=== PATIENT | female | born 1990 | race Caucasian/White ===

== ENCOUNTER → 2020-07-09 14:46 | Outpatient (CLI) | payer OTHER, SELFPAY ==
[2020-07-09 15:45] LABS: Add Manual Diff / Slide Review NO; Basophils Absolute Auto 100 /uL (0-100); Basophils Percent Auto 0.7 % (0-2); Eosinophils Absolute Auto 100 /uL (0-450); Eosinophils Percent Auto 0.8 % (2-4); Hematocrit 36.1 % (36-46); Hemoglobin 12.4 g/dL (12.0-16.0); Lymphocytes Absolute Auto 2100 /uL (1100-4500); Lymphocytes Percent Auto 28.5 % (25-40); Mean Corpuscular HGB Conc 34.3 % (30-36); Mean Corpuscular Hemoglobin 31.2 PG (26-34); Mean Corpuscular Volume 90.8 fL (80-100); Monocytes Absolute Auto 700 /uL (0-900); Monocytes Percent Auto 8.8 % (3-14); Neutrophils Absolute Auto 4600 /uL (1500-7000); Neutrophils Percent Auto 61.2 % (50-75); Platelet Count 238 X10^3/uL (150-400); Red Blood Cell Count 3.98 X10^6/uL (4.0-5.2); Red Cell Distribution Width 12.3 % (11.6-14.8); White Blood Cell Count 7.5 X10^3/uL (4.5-11.0)
[2020-07-09 16:16] LABS: Appearance Urine UA CLEAR; Bilirubin Urine UA NEGATIVE (NEGATIVE); Color Urine UA YELLOW; Glucose Urine UA NEGATIVE (Negative); Ketones Urine UA NEGATIVE (NEGATIVE); Leukocyte Esterase Urine UA NEGATIVE (NEGATIVE); Nitrite Urine UA NEGATIVE (Negative); Occult Blood Urine UA NEGATIVE (Negative); Protein Urine UA NEGATIVE (Negative); Specific Gravity Urine UA <=1.005 (1.000-1.035); Urobilinogen Urine UA 0.2 E.U./dL (0.2)
[2020-07-09 16:21] LABS: pH Urine UA 6.5 (4.5-8.0)
[2020-07-10 06:09] LABS: RPR Screen Non Reactive (Non Reactive)
[2020-07-10 10:36] LABS: Varicella IgG Antibody 1571 index (Immune >165)
[2020-07-10 18:17] LABS: Hepatitis B Surface Antigen NEGATIVE s/c (NEGATIVE)
[2020-07-10 18:34] LABS: HIV 1 & 2 Ab/Ag 4th Gen Combo NEGATIVE (NEGATIVE); Hep C Virus Ab w/Reflex Quant NEGATIVE s/c (NEGATIVE)
== END ==
PROVIDERS: Referring Provider Family Medicine; Visit Provider Family Medicine
DX: Z34.01 Encounter for supervision of normal first pregnancy, first trimester (principal)
CPT/HCPCS: 36415; 80055; 81003; 86787; 86803; 86850; 86900; 86901; 87086; 87389

== ENCOUNTER → 2020-09-04 07:54 | Outpatient (CLI) | payer OTHER, SELFPAY ==
[2020-09-06 18:47] LABS: AFP, Serum 40.3 ng/mL (.); Inhibin A, Dimeric 200.43 pg/mL (.); Inhibin A, MoM 1.16 (.); Maternal Ethnicity Caucasian (.); Maternal Weight 145 lbs (.); Number of Fetuses No (.); OSBR Risk 1 IN 10000 (.); Results Report (.); Test Results *Screen Negative* (.); hCG, MoM 3.27 (.); hCG, Serum 88233 mIU/mL (.)
== END ==
PROVIDERS: PCP Family Medicine; Referring Provider Family Medicine; Visit Provider Family Medicine
DX: Z34.90 Encounter for supervision of normal pregnancy, unspecified, unspecified trimester (principal); Z3A.16 16 weeks gestation of pregnancy
CPT/HCPCS: 36415; 82105; 82677; 84702; 86336

== ENCOUNTER → 2020-09-10 13:52 | Outpatient (CLI) | payer OTHER, SELFPAY | PROVIDERS: PCP Family Medicine; Referring Provider Family Medicine; Visit Provider Family Medicine | DX: Z34.92 Encounter for supervision of normal pregnancy, unspecified, second trimester (principal); Z3A.20 20 weeks gestation of pregnancy; Z53.9 Procedure and treatment not carried out, unspecified reason ==

== ENCOUNTER → 2020-09-24 09:08 | Outpatient (CLI) | payer OTHER, SELFPAY ==
--- NOTE | 2020-09-24 09:10 | DI.US.S_ITS ---
PROCEDURE: US OB >= 14 WEEKS FETUS INDICATIONS: ANATOMY SCAN OUTSIDE/PRIOR DATING DATA: Last menstrual period (LMP): 04/26/2020. LMP-based estimated date of delivery (ROSALINDA): 01/31/2021 . First dating scan (date and location): 09/24/2020 . Estimated date of delivery (ROSALINDA) from first dating scan: 02/04/2021 . TECHNIQUE: Real-time scanning was performed of the fetus, with image documentation and biometric measurements. Endovaginal scanning: No COMPARISON: None. FINDINGS: General: A single living intrauterine gestation is present. Presentation: Breech. Placenta: Placental position is right fundal , without previa. Amniotic fluid index: 13.5 cm, normal range is 5-24 cm. heart rate: 168 beats per minute. Maternal cervical canal: 3.6 cm long. Normal lower limit is 2.5 cm. biometrics: Biparietal diameter: 21 weeks Head circumference: 20 weeks 6 days Abdominal circumference: 21 weeks 4 days Femur length: 20 weeks 2 days Estimated gestational age from initial scan: not applicable. Composite gestational age from present scan: 21 weeks Estimated weight and percentile: 389 g; 17 percentile Measurement variability for biometric dating: +/- 7 days from 14 weeks to 15 weeks 6 days gestation, +/- 10 days from 16 weeks to 21 weeks 6 days gestation, +/- 2 weeks from 22 weeks to 27 weeks 6 days gestation, +/- 3 weeks for 28 weeks gestation or later. weight reference: 4500 g or EFW >90/95% is considered macrosomia or large for gestational age. EFW <10% is small for gestational age. EFW 5% or less is considered intra-uterine growth restriction. Anatomic survey: Neuro: Ventricles are non-dilated at less than 10 mm. Cisterna magna is normal at 3-11 mm. Cerebellum is normal in size and morphology. Nuchal skin fold: Normal at less than 6 mm between 14-21 weeks gestational age. Face: Nose and lips, facial profile are normal. Spine: No evidence for spina bifida. Heart: 4-chambered heart is present, with normal ventricular outflow tracts. Diaphragm: Diaphragm is intact. Stomach: Left-sided stomach is present. Kidneys: No hydronephrosis. Normal is less than 5 mm in 2nd trimester, less than 7 mm in 3rd trimester. Cord: 3-vessel cord has orthotopic insertion. Bladder: Normal in size. Extremities: All 4 extremities identified. IMPRESSION: 1. Single living IUP with composite gestational age of 21 weeks corresponding to ultrasound ROSALINDA of 02/04/2021. 2. Normal anatomic survey. Dictated by: Jose L Linder [facility] Interpreted: Jerardo Restrepo MD on 09/24/2020 at 10:48 Approved by: Jerardo Restrepo M.D. on 09/24/2020 at 11:12
== END ==
PROVIDERS: PCP Family Medicine; Referring Provider Family Medicine; Visit Provider Family Medicine
DX: Z36.89 Encounter for other specified antenatal screening (principal); Z3A.21 21 weeks gestation of pregnancy
CPT/HCPCS: 76811

== ENCOUNTER → 2020-11-19 16:06 | Outpatient (CLI) | payer OTHER, SELFPAY ==
[2020-11-19 17:50] LABS: Add Manual Diff / Slide Review NO; Basophils Absolute Auto 100 /uL (0-100); Basophils Percent Auto 0.6 % (0-2); Eosinophils Absolute Auto 100 /uL (0-450); Eosinophils Percent Auto 1.1 % (2-4); Hematocrit 34.3 % (36-46); Hemoglobin 11.8 g/dL (12.0-16.0); Lymphocytes Absolute Auto 2500 /uL (1100-4500); Lymphocytes Percent Auto 25.9 % (25-40); Mean Corpuscular HGB Conc 34.5 % (30-36); Mean Corpuscular Hemoglobin 31.9 PG (26-34); Mean Corpuscular Volume 92.6 fL (80-100); Monocytes Absolute Auto 800 /uL (0-900); Neutrophils Absolute Auto 6200 /uL (1500-7000); Neutrophils Percent Auto 64.4 % (50-75); Platelet Count 227 X10^3/uL (150-400); Red Cell Distribution Width 12.8 % (11.6-14.8); White Blood Cell Count 9.6 X10^3/uL (4.5-11.0)
[2020-11-19 18:03] LABS: GTT (PREG) 1 Hour PP 50gm Dose 114 mg/dL (76-139)
== END ==
PROVIDERS: PCP Family Medicine; Referring Provider Family Medicine; Visit Provider Family Medicine
DX: Z34.90 Encounter for supervision of normal pregnancy, unspecified, unspecified trimester (principal)
CPT/HCPCS: 36415; 82950; 85025

== ENCOUNTER → 2021-01-09 16:11 | Outpatient (CLI) | payer OTHER, SELFPAY ==
[2021-01-10 13:03] LABS: Strep Grp B PCR NEG for Grp B Strep
== END ==
PROVIDERS: PCP Family Medicine; Visit Provider Family Medicine
DX: Z3A.35 35 weeks gestation of pregnancy (principal); Z34.90 Encounter for supervision of normal pregnancy, unspecified, unspecified trimester
CPT/HCPCS: 87653

== ENCOUNTER → 2021-01-23 11:12 | Outpatient (CLI) | payer OTHER, SELFPAY ==
[2021-01-23 11:59] LABS: Add Manual Diff / Slide Review NO; Basophils Absolute Auto 0 /uL (0-100); Basophils Percent Auto 0.4 % (0-2); Eosinophils Absolute Auto 100 /uL (0-450); Eosinophils Percent Auto 0.9 % (2-4); Hematocrit 35.8 % (36-46); Hemoglobin 12.4 g/dL (12.0-16.0); Lymphocytes Absolute Auto 2300 /uL (1100-4500); Lymphocytes Percent Auto 21.9 % (25-40); Mean Corpuscular HGB Conc 34.7 % (30-36); Mean Corpuscular Hemoglobin 31.9 PG (26-34); Mean Corpuscular Volume 92.1 fL (80-100); Monocytes Absolute Auto 700 /uL (0-900); Monocytes Percent Auto 7.1 % (3-14); Neutrophils Absolute Auto 7200 /uL (1500-7000); Neutrophils Percent Auto 69.7 % (50-75); Platelet Count 164 X10^3/uL (150-400); Red Blood Cell Count 3.88 X10^6/uL (4.0-5.2); Red Cell Distribution Width 12.9 % (11.6-14.8); White Blood Cell Count 10.4 X10^3/uL (4.5-11.0)
[2021-01-23 12:40] LABS: Alanine Aminotransferase 9 IU/L (<35); Albumin 3.1 g/dL (3.5-5.0); Albumin Globulin Ratio 1.2 (1.0-2.8); Alkaline Phosphatase 128 U/L (38-126); Aspartate Aminotransferase 22 IU/L (14-36); Blood Urea Nitrogen 7 mg/dL (7-17); Calcium 9.3 mg/dL (8.4-10.2); Carbon Dioxide 25 mmol/L (22-32); Chloride 103 mmol/L (98-107); Estimated Glomerular Filt Rate > 60.0 mL/min (>60); Globulin 2.6 g/dL (1.7-4.1); Glucose 115 mg/dL (70-100); HEMOLYSIS < 15 (0-50); Potassium 4.1 mmol/L (3.4-5.1); Sodium 133 mmol/L (137-145); Total Protein 5.7 g/dL (6.3-8.2)
[2021-01-23 12:43] LABS: Bilirubin Total < 0.1 mg/dL (0.2-1.3)
[2021-01-23 13:14] LABS: Creatinine Urine Random 15.1 mg/dL; Protein (Total) Urine Random 13 mg/dL (0-12); Protein Creatinine Ratio Urine 0.86 GRAM/24H
== END ==
PROVIDERS: PCP Family Medicine; Referring Provider Family Medicine; Visit Provider Family Medicine
DX: O16.3 Unspecified maternal hypertension, third trimester (principal); Z3A.37 37 weeks gestation of pregnancy
CPT/HCPCS: 36415; 80053; 82570; 84156; 85025

== ENCOUNTER 2021-01-23 11:51 | Outpatient (CLI) | payer OTHER, SELFPAY ==
--- NOTE | 2021-01-23 12:47 | P.TNLD_ITS ---
Visit Information Visit Information Date of evaluation: 01/23/21 Primary OB Provider: Melissa Sykes Reason for Evaluation: Yes non-stress test non-stress test reason: hypertension/pre-eclampsia Comments/Additional reasons for admission: 30yo at 37w3d here for elevated BP in clinic. No headache, vision changes, right upper quadrant abdominal pain, lower extremity edema. Patient denies any vaginal bleeding, loss of fluid, regular contractions. She is feeling the baby move regularly. REPLACED BY [facility] Medical History (Updated 01/23/21 @ 12:49 by Melissa Sykes MD) HSV-1 infection (~2005) Kidney stone (~2001) Surgical History (Updated 07/13/20 @ 09:17 by Molly Leal RN) [place] teeth extracted (~2008) Family History (Updated 07/13/20 @ 09:30 by Molly Leal RN) Mother Hypertension Father Arthritis Reflux esophagitis Grandmother Heart valve replaced H/O: hysterectomy Grandfather Alzheimer disease Grandmother Dementia Grandfather Cancer Pulmonary embolism Kidney stone Brother Obesity Social History marital status: household members: spouse lives independently: Yes caregiver/support person: No housing: house pets and animals: Yes (1 cat, 1 dog, aware of precautions.) education level: college occupational status: employed current occupational exposures/hazards: No special mera needs: No leisure activities: exercise seatbelt use: always helmet use: Yes do you feel safe at home: Yes Smoking Status: Never smoker second hand exposure: No alcohol intake: former substance use type: does not use during the past year weight has: increased > 10 lbs well-balanced diet: daily or most days daily servings fruits/ve or more times/day caffeine: No Type(s) of exercise: walking, bicycling and yoga frequency: 3-4 times per week duration: 30-45 minutes/day Evaluation Evaluation Baseline heart rate: 150 Variability: Moderate (11-25) monitor accelerations: Present Monitor Decelerations: Absent Category of Tracing: Reactive Diagnosis, Plan/Disposition Final Diagnosis (1) 37 weeks gestation of : Status: Acute (2) Elevated blood pressure affecting in third trimester, antepartum: Status: Acute Plan/Disposition Plan: 30yo at 37w3d here for elevated BP in clinic. Repeat BPs here normal range. Lab work without evidence HELLP, however protein/creatinine is elevated. Discussed concern for pre-eclampsia with this. Recommend IOL. After at length discussion regarding risks, pt would like to wait on IOL at this time. Plan to have her return in 2 days for NST and BPP. Pt to check BPs at home at least BID, will contact if > 140/90, or any signs/symptoms. Plan for IOL on 01/31 into 02/01. OB Disposition: home
== END 2021-01-23 13:35 | disposition home or self-care (01) ==
LOC: LABOR 12:41 → OB 01-24 10:38
PROVIDERS: PCP Family Medicine; Referring Provider Family Medicine; Visit Provider Family Medicine
DX: O16.3 Unspecified maternal hypertension, third trimester (principal); Z3A.37 37 weeks gestation of pregnancy
CPT/HCPCS: 36415; 59025; 80053; 82570; 84156; 85025; G0378; G0379

== ENCOUNTER 2021-01-25 16:04 | Outpatient (CLI) | payer OTHER, SELFPAY ==
--- NOTE | 2021-01-25 16:11 | P.TNLD_ITS ---
Visit Information Visit Information Date of evaluation: 01/25/21 Primary OB Provider: Melissa Sykes Reason for Evaluation: Yes non-stress test non-stress test reason: hypertension/pre-eclampsia Comments/Additional reasons for admission: 30yo at 37w5d here for IOL for pre-eclampsia without severe features. [facility] Medical History (Updated 01/25/21 @ 17:19 by Melissa Sykes MD) HSV-1 infection (~2005) Kidney stone (~2001) Pre-eclampsia Surgical History (Updated 07/13/20 @ 09:17 by Molly Leal RN) [place] teeth extracted (~2008) Family History (Updated 07/13/20 @ 09:30 by Molly Leal RN) Mother Hypertension Father Arthritis Reflux esophagitis Grandmother Heart valve replaced H/O: hysterectomy Grandfather Alzheimer disease Grandmother Dementia Grandfather Cancer Pulmonary embolism Kidney stone Brother Obesity Social History marital status: household members: spouse lives independently: Yes caregiver/support person: No housing: house pets and animals: Yes (1 cat, 1 dog, aware of precautions.) education level: college occupational status: employed current occupational exposures/hazards: No special mera needs: No leisure activities: exercise seatbelt use: always helmet use: Yes do you feel safe at home: Yes Smoking Status: Never smoker second hand exposure: No alcohol intake: former substance use type: does not use during the past year weight has: increased > 10 lbs well-balanced diet: daily or most days daily servings fruits/ve or more times/day caffeine: No Type(s) of exercise: walking, bicycling and yoga frequency: 3-4 times per week duration: 30-45 minutes/day Evaluation Evaluation Baseline heart rate: 150 Variability: Moderate (11-25) monitor accelerations: Present Monitor Decelerations: Absent Category of Tracing: Reactive Diagnosis, Plan/Disposition Final Diagnosis (1) 37 weeks gestation of : Status: Acute (2) Pre-eclampsia: Status: Acute Plan/Disposition Plan: 30yo at 37w5d here for NST and BPP for pre-eclampsia. NST reactive and BPP 8/8. Pts BPs borderline throughout her time in L&D, with more elevation after surprise finding out she was having a boy not a girl based on u/s. Pt aware of risks of continuing with instead of IOL, and elected to not be induced. Will have f/u on 01/29 for NST and repeat lab work. Plan for IOL on 02/01 still. Aware to check BPs at home TID, and signs/symptoms of pre- eclampsia. OB Disposition: home
--- NOTE | 2021-01-25 16:15 | DI.US.S_ITS ---
PROCEDURE: US OB BIOPHYSICAL PROFILE INDICATIONS: Gestational HTN OUTSIDE/PRIOR DATING DATA: Last menstrual period (LMP): 04/26/2020 . LMP-based estimated date of delivery (ROSALINDA): 01/31/2021 . First dating scan (date and location): 09/24/2020 . Estimated date of delivery (ROSALINDA) from first dating scan: 02/04/2021 . TECHNIQUE: Real-time scanning was performed of the fetus for biophysical profile, with image documentation. Color and pulse Doppler interrogation was also performed of the umbilical artery near its insertion into the placenta. COMPARISON: None. FINDINGS: General: A single living intrauterine gestation is present. Presentation: Unable to identified Placenta: Placental position is fundal , without previa. Amniotic fluid index: 22 cm, normal range is 5-24 cm. heart rate: 153 beats per minute. Estimated gestational age from initial scan: 38 weeks 4 days . Biophysical profile: Tone: 2 points. Movement: 2 points. Respiration: 2 points. Largest pocket of fluid: 2 points. IMPRESSION: 1. Single live intrauterine with an estimated gestational age of 38 weeks 4 days. 2. Biophysical profile = 8/8 3. WANDA = 22. Upper limits of normal. Dictated by: Moe Cadet M.D. on 01/25/2021 at 17:48 Approved by: Moe Cadet M.D. on 01/25/2021 at 17:52
== END 2021-01-25 17:45 | disposition home or self-care (01) ==
LOC: OB 01-28 11:24
PROVIDERS: PCP Family Medicine; Referring Provider Family Medicine; Visit Provider Family Medicine
DX: O14.03 Mild to moderate pre-eclampsia, third trimester (principal); Z3A.37 37 weeks gestation of pregnancy
CPT/HCPCS: 59025; 59050; 76819; G0378; G0379

== ENCOUNTER 2021-01-29 10:56 | Outpatient (CLI) | payer OTHER, SELFPAY ==
[2021-01-29 11:42] LABS: Add Manual Diff / Slide Review NO; Basophils Absolute Auto 100 /uL (0-100); Basophils Percent Auto 0.5 % (0-2); Eosinophils Absolute Auto 100 /uL (0-450); Eosinophils Percent Auto 0.9 % (2-4); Hematocrit 36.9 % (36-46); Hemoglobin 12.5 g/dL (12.0-16.0); Lymphocytes Absolute Auto 2300 /uL (1100-4500); Lymphocytes Percent Auto 19.3 % (25-40); Mean Corpuscular HGB Conc 33.8 % (30-36); Mean Corpuscular Hemoglobin 31.2 PG (26-34); Mean Corpuscular Volume 92.3 fL (80-100); Monocytes Absolute Auto 1100 /uL (0-900); Monocytes Percent Auto 9.4 % (3-14); Neutrophils Absolute Auto 8400 /uL (1500-7000); Neutrophils Percent Auto 69.9 % (50-75); Platelet Count 186 X10^3/uL (150-400); Red Cell Distribution Width 12.8 % (11.6-14.8)
--- NOTE | 2021-01-29 11:51 | PM.OBTRLD ---
Visit Information Visit Information Date of evaluation: 01/29/21 Primary OB Provider: Melissa Sykes Reason for Evaluation: Yes non-stress test non-stress test reason: hypertension/pre-eclampsia Comments/Additional reasons for admission: 30yo at 38w2d here for NST for pre-eclampsia. No headaches, vision changes, RUQ pain, LE edema. Feeling baby move regularly. No LOF. Mild contractions. [facility] Medical History (Updated 01/29/21 @ 11:52 by Melissa Sykes MD) HSV-1 infection (~2005) Kidney stone (~2001) Pre-eclampsia Surgical History (Updated 07/13/20 @ 09:17 by Molly Leal RN) [place] teeth extracted (~2008) Family History (Updated 07/13/20 @ 09:30 by Molly Leal RN) Mother Hypertension Father Arthritis Reflux esophagitis Grandmother Heart valve replaced H/O: hysterectomy Grandfather Alzheimer disease Grandmother Dementia Grandfather Cancer Pulmonary embolism Kidney stone Brother Obesity Social History marital status: household members: spouse lives independently: Yes caregiver/support person: No housing: house pets and animals: Yes (1 cat, 1 dog, aware of precautions.) education level: college occupational status: employed current occupational exposures/hazards: No special mera needs: No leisure activities: exercise seatbelt use: always helmet use: Yes do you feel safe at home: Yes Smoking Status: Never smoker second hand exposure: No alcohol intake: former substance use type: does not use during the past year weight has: increased > 10 lbs well-balanced diet: daily or most days daily servings fruits/ve or more times/day caffeine: No Type(s) of exercise: walking, bicycling and yoga frequency: 3-4 times per week duration: 30-45 minutes/day Objective Labs Result Diagrams: 01/29/21 11:30 01/29/21 11:30 Labs: Laboratory Results - last 24 hr 01/29/21 11:30 WBC 12.0 H RBC 4.00 Hgb 12.5 Hct 36.9 MCV 92.3 MCH 31.2 MCHC 33.8 RDW 12.8 Plt Count 186 Neut % (Auto) 69.9 Lymph % (Auto) 19.3 L [place] % (Auto) 9.4 Eos % (Auto) 0.9 L Baso % (Auto) 0.5 Neut # (Auto) 8400 H Lymph # (Auto) 2300 [place] # (Auto) 1100 H Eos # (Auto) 100 Baso # (Auto) 100 Evaluation Evaluation Baseline heart rate: 150 Variability: Moderate (11-25) monitor accelerations: Present Monitor Decelerations: Absent Contraction Frequency (minutes): 5 Category of Tracing: Reactive Laboratory results: Laboratory Tests 01/29/21 11:30 WBC 12.0 H RBC 4.00 Hgb 12.5 Hct 36.9 MCV 92.3 MCH 31.2 MCHC 33.8 RDW 12.8 Plt Count 186 Neut % (Auto) 69.9 Lymph % (Auto) 19.3 L [place] % (Auto) 9.4 Eos % (Auto) 0.9 L Baso % (Auto) 0.5 Neut # (Auto) 8400 H Lymph # (Auto) 2300 [place] # (Auto) 1100 H Eos # (Auto) 100 Baso # (Auto) 100 Diagnosis, Plan/Disposition Final Diagnosis (1) Pre-eclampsia: Status: Acute (2) 38 weeks gestation of : Status: Acute Plan/Disposition Plan: 30yo at 38w2d here for NST and labs for pre-eclampsia. NST reactive. Lab work without evidence HELLP. Pt aware of recommendation for induction now, but plans on induction 01/31 into 02/01. OB Disposition: home
[2021-01-29 11:53] LABS: Aspartate Aminotransferase 22 IU/L (14-36); BUN Creatinine Ratio 15.5 (6-22); Blood Urea Nitrogen 9 mg/dL (7-17); Estimated Glomerular Filt Rate > 60.0 mL/min (>60); Uric Acid 4.6 mg/dL (2.5-6.2)
== END 2021-01-29 12:02 | disposition home or self-care (01) ==
LOC: LABOR 11:21 → OB 01-30 07:17
PROVIDERS: PCP Family Medicine; Referring Provider Family Medicine; Visit Provider Family Medicine
DX: O14.93 Unspecified pre-eclampsia, third trimester (principal); Z3A.38 38 weeks gestation of pregnancy
CPT/HCPCS: 36415; 59025; 84450; 84550; 85025; G0378; G0379

== ENCOUNTER 2021-01-31 19:52 | Inpatient (IN) | payer OTHER, SELFPAY ==
[2021-01-31] MEDS: miSOPROStoL 25 MCG TABLET VAG (23:39)
[2021-01-31 23:50] LABS: Add Manual Diff / Slide Review NO; Alanine Aminotransferase 11 IU/L (<35); Albumin 3.3 g/dL (3.5-5.0); Albumin Globulin Ratio 1.2 (1.0-2.8); Alkaline Phosphatase 135 U/L (38-126); Aspartate Aminotransferase 25 IU/L (14-36); BUN Creatinine Ratio 18.6 (6-22); Basophils Absolute Auto 100 /uL (0-100); Basophils Percent Auto 0.6 % (0-2); Bilirubin Total < 0.1 mg/dL (0.2-1.3); Blood Urea Nitrogen 8 mg/dL (7-17); Calcium 9.3 mg/dL (8.4-10.2); Carbon Dioxide 21 mmol/L (22-32); Chloride 106 mmol/L (98-107); Eosinophils Absolute Auto 100 /uL (0-450); Estimated Glomerular Filt Rate > 60.0 mL/min (>60); Globulin 2.8 g/dL (1.7-4.1); Glucose 96 mg/dL (70-100); HEMOLYSIS < 15 (0-50); Hematocrit 35.8 % (36-46); Lymphocytes Absolute Auto 3300 /uL (1100-4500); Lymphocytes Percent Auto 25.7 % (25-40); Mean Corpuscular HGB Conc 33.6 % (30-36); Mean Corpuscular Hemoglobin 31.2 PG (26-34); Mean Corpuscular Volume 92.6 fL (80-100); Monocytes Absolute Auto 1100 /uL (0-900); Monocytes Percent Auto 8.2 % (3-14); Neutrophils Absolute Auto 8200 /uL (1500-7000); Neutrophils Percent Auto 64.5 % (50-75); Platelet Count 185 X10^3/uL (150-400); Potassium 3.6 mmol/L (3.4-5.1); Red Blood Cell Count 3.86 X10^6/uL (4.0-5.2); Sodium 135 mmol/L (137-145); Total Protein 6.1 g/dL (6.3-8.2); White Blood Cell Count 12.8 X10^3/uL (4.5-11.0)
[2021-02-01 00:32] LABS: COVID19 - ADMIT (NP swab/PCR) Negative (Negative)
--- NOTE | 2021-02-01 08:28 | P.HPOB_ITS ---
OB HPI Date/Time Date of admission: 01/31/21 Date Patient Seen: 02/01/21 Time Patient Seen: 07:50 History of Present Condition Chief complaint: EVAL OF LABOR : 1 Para: 0 Estimated Date of Delivery: 02/10/21 Estimated Gestational Age (weeks): 38w5d Narrative: Donna Powell is a 30 year old at 38w5d who presented for IOL due to pre-eclampsia. The pt denies any vaginal bleeding or LOF. She is feeling her baby move regularly. Pre-eclampsia was diagnosed at 37w3d based on elevated blood pressure and protein/creatinine ratio. She elected to wait until now for IOL, after discussion of risks. She has had reassuring testing in the interim. She denies any vision changes, RUQ pain, LE edema, headaches. Indications Indication for induction OB: other (pre-eclampsia) History of Present care: good care, initiated at week # (8) and pounds weight gain (32) Dating criteria: based on 1st trimester US only Ultrasounds: normal 1st trimester US and normal mid trimester US Obstetrical complications: preeclampsia Medical complications: none Preadmission Labs Blood type: A (+) positive -: Antibody screen: negative, GBS status: negative, HBsAG: negative, HIV: negative and RPR/VDLR: negative -: Rubella: immune and Varicella: immune HCT: 36.9 HCAB: negative Quad screen: Normal Urine: Negative 1 hr GTT: 114 Evaluation Evaluation Baseline heart rate: 150 Variability: Moderate (11-25) monitor accelerations: Present Monitor Decelerations: Absent Contraction Frequency (minutes): 3 Uterine Contraction Intensity: Strong/Firm Status: Category l Cervical dilation (cm): 3 Cervical effacement (%): 100 station: -2 Laboratory results: Laboratory Tests 01/31/21 01/31/21 01/31/21 23:25 23:25 23:25 WBC 12.8 H RBC 3.86 L Hgb 12.0 Hct 35.8 L MCV 92.6 MCH 31.2 MCHC 33.6 RDW 13.0 Plt Count 185 Neut % (Auto) 64.5 Lymph % (Auto) 25.7 [place] % (Auto) 8.2 Eos % (Auto) 1.0 L Baso % (Auto) 0.6 Neut # (Auto) 8200 H Lymph # (Auto) 3300 [place] # (Auto) 1100 H Eos # (Auto) 100 Baso # (Auto) 100 Sodium 135 L Potassium 3.6 Chloride 106 Carbon Dioxide 21 L BUN 8 Creatinine 0.43 L Estimated GFR > 60.0 BUN/Creatinine Ratio 18.6 Glucose 96 Calcium 9.3 Total Bilirubin < 0.1 L AST 25 ALT 11 Alkaline Phosphatase 135 H Total Protein 6.1 L Albumin 3.3 L Globulin 2.8 Albumin/Globulin Ratio 1.2 SARS-CoV-2 (PCR) Blood Type A Positive Antibody Screen Negative 01/31/21 23:25 WBC RBC Hgb Hct MCV MCH MCHC RDW Plt Count Neut % (Auto) Lymph % (Auto) [place] % (Auto) Eos % (Auto) Baso % (Auto) Neut # (Auto) Lymph # (Auto) [place] # (Auto) Eos # (Auto) Baso # (Auto) Sodium Potassium Chloride Carbon Dioxide BUN Creatinine Estimated GFR BUN/Creatinine Ratio Glucose Calcium Total Bilirubin AST ALT Alkaline Phosphatase Total Protein Albumin Globulin Albumin/Globulin Ratio SARS-CoV-2 (PCR) Negative Blood Type Antibody Screen [facility] Medical History (Updated 01/29/21 @ 11:52 by Melissa Sykes MD) HSV-1 infection (~2005) Kidney stone (~2001) Pre-eclampsia Surgical History (Updated 07/13/20 @ 09:17 by Molly Leal RN) [place] teeth extracted (~2008) Family History (Updated 07/13/20 @ 09:30 by Molly Leal RN) Mother Hypertension Father Arthritis Reflux esophagitis Grandmother Heart valve replaced H/O: hysterectomy Grandfather Alzheimer disease Grandmother Dementia Grandfather Cancer Pulmonary embolism Kidney stone Brother Obesity Social History marital status: household members: spouse lives independently: Yes caregiver/support person: No housing: house pets and animals: Yes (1 cat, 1 dog, aware of precautions.) education level: college occupational status: employed current occupational exposures/hazards: No special mera needs: No leisure activities: exercise seatbelt use: always helmet use: Yes do you feel safe at home: Yes Smoking Status: Never smoker second hand exposure: No alcohol intake: former substance use type: does not use during the past year weight has: increased > 10 lbs well-balanced diet: daily or most days daily servings fruits/ve or more times/day caffeine: No Type(s) of exercise: walking, bicycling and yoga frequency: 3-4 times per week duration: 30-45 minutes/day Meds Home Medications and Allergies Home Medications Medication Instructions Recorded Confirmed Type prenat.vits,evy,cak-yjuc-ybhab 1 tab PO DAILY 07/13/20 02/01/21 History pyridoxine (vitamin B6) 50 mg 50 mg PO BID 07/13/20 02/01/21 History capsule breast pump #1 ea 12/26/20 02/01/21 Rx Allergies Allergy/AdvReac Type Severity Reaction Status Date / Time No Known Drug Allergies Allergy Verified 09/18/20 14:01 Exam Const General: cooperative, healthy appearing and comfortable Orientation: alert, awake and oriented x3 Resp Effort & Inspection: normal respiratory effort Auscultation: clear to auscultation bilaterally Cardio Rate: regular rate Rhythm: regular rhythm Heart Sounds: S1 normal, S2 normal and no murmurs GI Inspection: non-distended Palpation: soft and No tender Other: gravid Presentation: vertex Extrem General: no clubbing, cyanosis or edema Objective Labs Result Diagrams: 01/31/21 23:25 01/31/21 23:25 Labs: Laboratory Results - last 24 hr 01/31/21 01/31/21 01/31/21 23:25 23:25 23:25 WBC 12.8 H RBC 3.86 L Hgb 12.0 Hct 35.8 L MCV 92.6 MCH 31.2 MCHC 33.6 RDW 13.0 Plt Count 185 Neut % (Auto) 64.5 Lymph % (Auto) 25.7 [place] % (Auto) 8.2 Eos % (Auto) 1.0 L Baso % (Auto) 0.6 Neut # (Auto) 8200 H Lymph # (Auto) 3300 [place] # (Auto) 1100 H Eos # (Auto) 100 Baso # (Auto) 100 Sodium 135 L Potassium 3.6 Chloride 106 Carbon Dioxide 21 L BUN 8 Creatinine 0.43 L Estimated GFR > 60.0 BUN/Creatinine Ratio 18.6 Glucose 96 Calcium 9.3 Total Bilirubin < 0.1 L AST 25 ALT 11 Alkaline Phosphatase 135 H Total Protein 6.1 L Albumin 3.3 L Globulin 2.8 Albumin/Globulin Ratio 1.2 SARS-CoV-2 (PCR) Blood Type A Positive Antibody Screen Negative 01/31/21 23:25 WBC RBC Hgb Hct MCV MCH MCHC RDW Plt Count Neut % (Auto) Lymph % (Auto) [place] % (Auto) Eos % (Auto) Baso % (Auto) Neut # (Auto) Lymph # (Auto) [place] # (Auto) Eos # (Auto) Baso # (Auto) Sodium Potassium Chloride Carbon Dioxide BUN Creatinine Estimated GFR BUN/Creatinine Ratio Glucose Calcium Total Bilirubin AST ALT Alkaline Phosphatase Total Protein Albumin Globulin Albumin/Globulin Ratio SARS-CoV-2 (PCR) Negative Blood Type Antibody Screen Assessment and Plan Assessment and Plan Assessment and Plan narrative: 30yo at 38w5d here for IOL for pre- eclampsia. Received one dose of cytotec overnight, now with regular painful contractions and cervical change, in active labor. Rh positive, GBS negative. - Expectant management, anticipate - GBS negative, no prophylaxis indicated - FHT reassuring - No need for augmentation at this time, continue to monitor for cervical change - Pt does not desire epidural, discussed natural methods of pain control
[2021-02-01] MEDS: CALCIUM CARBONATE 500 MG TAB 1000 MG PO ×4 (08:32→15:34)
[2021-02-01] MEDS: LACTATED RINGERS 1,000 ML 100 ML IV (09:00)
[2021-02-01 10:58] VITALS: BP 137/88
--- NOTE | 2021-02-01 17:22 | PM.OBPRVD ---
Events: Pre-Eclampsia Labor & Delivery Delivery date: 02/01/21 Intrapartal Events: Mild Preeclampsia Cervical ripening method: per misoprostal protocol Induction method: none Delivery augmentation: rupture of membranes Delivery monitor: external FHT Route of delivery: vacuum extraction Indication for instrumentation: other (asynclitic presentation and limited descent) Episiotomy description: None L&D Laceration Description: Labial Delivery repair: chromic (3-O) Estimated blood loss (mL): 100 Anesthesia Type: Epidural Complications: None Narrative: PROCEDURE: at 38w5d presented for IOL due to pre-eclampsia without severe features and was admitted to Labor and Delivery. She received one dose of cytotec, and the progressed into active labor without additional intervention. The patient progressed through the 1st stage over 3.5 hours. Pain was controlled with an epidural. AROM was performed with clear fluid present when the pt was complete. The patient progressed through the 2nd stage over 4 hours. During the 2nd stage the pts contractions spaced, and pitocin was initiated at only 1 mU. The baby as noted to be asynclitic with minimal descent with pushing. Maternal pelvis was adequate, however, and so the decision was made to attempt operative vaginal delivery with a vacuum. Patient was evaluated and noted to have adequate pain control. Patient counseled on risks/benefits/alternatives of vacuum assisted delivery. Risks were discussed and they included but were not limited to a need for an episiotomy, pressure linares on the baby, lacerations to the baby's scalp/face, serious damage including skull fracture, the need to proceed with an abdominal procedure, , paralysis of the baby's arms and/or legs, neurological impairment of the baby. Alternatives would include CS or further observation depending on status. Questions were answered and the patient verbalized an understanding and decided to proceed. Vacuum cup of the [employer] applied to the flexion point without difficulty and during contractions, pressure applied between 400-600 mmHg as indicated in the green zone of the pressure gauge. Infant transitioned to after 3 pulls with 0 pop-offs over an intact perineum. The was then delivered with maternal effort alone. Cord clamped and cut after it stopped pulsing. was examined with no evidence of injury noted. time was 15:48 with APGARs 9/9. The perineum and vagina were inspected with left labial laceration repaired with 3-O chromic. PREPROCEDURE DIAGNOSIS: Intrauterine at 38w5d GBS negative RH positive Pre-eclampsia without severe features POSTPROCEDURE DIAGNOSIS: Intrauterine at 38w5d, delivered Same as preprocedure [place] Baby 1: Infant gender: Male Presentation: vertex Position: Right Occiput Anterior Placenta delivery description: Spontaneous Cord Vessel Description: 3 Vessels and Nuchal Cord (x1, reduced at perineum) score (1 min): 9 score (5 min): 9 weight: 8 lb 0.1 oz Plan for aftercare: Routine care
[2021-02-01] MEDS: IBUPROFEN 600 MG TABLET PO (18:24)
[2021-02-01] MEDS: DERMOPLAST SPRAY 20% 60 ML 1 SPRAY TOP (18:24)
[2021-02-02] MEDS: IBUPROFEN 600 MG TABLET PO ×3 (00:22→12:51)
[2021-02-02] MEDS: LANOLIN OINT 7 GM 1 APPLIC TOP (03:55)
--- NOTE | 2021-02-02 08:43 | P.DS_ITS ---
Discharge Providers Provider Date of admission: 01/31/21 19:52 Discharge Date: 02/02/21 Primary care physician: Melissa Sykes MD Consults: 02/02/21 17:21 Consult to Agricultural Equipment Operator Routine Comment: Discharge provider: Melissa Sykes MD Summary Hospital Course Date Patient Seen: 02/02/21 Time Patient Seen: 08:00 Diagnoses: 38w5d gestation GBS negative Rh positive Pre-eclampsia without severe features Asynclitic presentation Hospital Course: The pt presented for IOL due to pre-eclampsia without severe features. She received one dose of cytotec, and transitioned into active labor. She received an epidural for pain control. She progressed to complete. AROM was performed with production of clear fluid. After prolonged pushing, with limited descent and the baby asynclitic and transverse, the decision was made to proceed with vacuum-assisted vaginal delivery. At maternal request, the vacuum was removed when the baby as and the baby was delivered without complications. A nuchal cord was reduced at the perineum. A left labial laceration was then repaired. , there were no complications. At the time of discharge she was voiding, ambulating, and passing flatus without difficulty. Her lochia was decreasing appropriately She was with good latch. Her pain was well controlled. The pts BPs remained in normal range . She was asymptomatic. She will f/u in clinic for a 6 week check. She likely plans on natural family planning for contraception. Peripartum Data Infant Delivery Method: Assisted Delivery Laceration Description: Labial Episiotomy description: None Procedures: Vacuum-assisted vaginal delivery complications: none [place] 1: Gender: Male Disposition of : home Discharge Diagnosis (1) Vacuum-assisted vaginal delivery: Status: Acute Status at Discharge Cognitive/behavioral status at discharge: oriented Functional status at discharge: independent ambulation Overall status at discharge: patient is progressing back to baseline Time Spent with Patient Time attestation: Total time spent providing and/or coordinating discharge services: Objective Labs Result Diagrams: 01/31/21 23:25 01/31/21 23:25 Exam Narrative Exam Narrative: Gen: NAD, sitting comfortably in bed, appears well CV: RRR, no murmurs Resp: clear to auscultation bilaterally Abd: soft, appropriately tender, fundus firm and below the umbilicus, nondistended Ext: no edema Discharge Plan Discharge Plan Patient Disposition: Home Discharge orders & Medications Prescriptions: Continued (DME) breast pump Device See Rx Instructions .ROUTE .MEDSUPPLY Qty: 1 RF: 0 prenat.vits,evy,gjo-sake-xhnuu Tablet 1 tab PO DAILY RF: 0 Discontinued pyridoxine (vitamin B6) 50 mg capsule 50 mg PO BID RF: 0 Follow up/Referrals: Melissa Sykes MD [Primary Care Provider] - 6 Weeks (Please call the office to schedule your six week follow up appointment with Dr. Sykes.) Diet/Activity/Treatments Diet: Diet as Tolerated and Regular Skin/Wound/Dressing Care Report to your healthcare provider any signs of infection, such as:: chills, fever, increased pain and unusual drainage Visit Report/Discharge Packet Instructions: DI for Labor and Delivery, Vaginal Stand Alone Forms: Discharge: Care Visit Report Forms: Patient Portal/API, Stroke Signs & Symptoms Discharge Data Primary Care Provider: Melissa Sykes Discharges patient from system. Discharge Date/Time: 02/02/21 17:22
[2021-02-02] MEDS: DOCUSATE 100 MG CAPSULE PO (11:48)
[2021-02-02] MEDS: ACETAMINOPHEN 325 MG TABLET 650 MG PO (11:48)
[2021-02-02] MEDS: LACTATED RINGERS 1,000 ML 100 ML IV (16:30)
[2021-02-02 16:36] VITALS: BP 117/72; PULSE 82; RESP 16; TEMP 36.9
== END 2021-02-02 17:22 | disposition home or self-care (01) | DRG 768 ==
PROVIDERS: Admitting Provider Family Medicine; PCP Family Medicine; Referring Provider Family Medicine; Visit Provider Family Medicine
DX: O14.04 Mild to moderate pre-eclampsia, complicating childbirth (principal); Z37.0 Single live birth; Z3A.38 38 weeks gestation of pregnancy; O70.0 First degree perineal laceration during delivery; O69.81X0 Labor and delivery complicated by cord around neck, without compression, not applicable or unspecified; Z20.822 Contact with and (suspected) exposure to COVID-19
CPT/HCPCS: 01967; 36415; 59050; 59200; 59400; 80053; 85025; 86850; 86900; 86901; 87635; C9803; G0379

== ENCOUNTER → 2023-08-10 12:08 | Outpatient (CLI) | payer OTHER, SELFPAY ==
--- NOTE | 2023-08-10 12:10 | DI.US.S_ITS ---
PROCEDURE: US OB <= 14 WEEKS FETUS INDICATIONS: DATES OUTSIDE/PRIOR DATING DATA: Last menstrual period (LMP): June 08, 2023. LMP-based estimated date of delivery (ROSALINDA): March 14, 2024. First dating scan (date and location): August 10, 2023. Estimated date of delivery (ROSALINDA) from first dating scan: June 12, 2024 TECHNIQUE: Real-time scanning was performed of the fetus and maternal pelvic organs, with image documentation. Endovaginal scanning was also performed to better visualize the fetus and maternal ovaries. COMPARISON: None. FINDINGS: Embryo: A gestational sac is noted with a 2.5 cm pole present within. This corresponds with a gestational age of 9 weeks, 2 days. There is a 1.1 x 0.3 x 0.7 cm subchorionic bleed. A normal yolk sac is noted. Heart rate: 169 Maternal organs: Ovaries have a normal appearance. There is a left corpus luteal cyst. IMPRESSION: 1. Single live intrauterine gestation with a gestational age of 9 weeks, 2 days by crown-rump length. 2. Small subchorionic hemorrhage. We strive to produce accurate, complete, and clear reports of imaging services. To assist us in improving patient care, this report was composed using standard report templates and voice recognition software. Therefore, it may contain abnormal punctuation, insertions and/or omissions. Occasional wrong-word or sound-alike substitutions may occur. Though we review the report and make efforts to correct it, we do recommend that the report be read carefully in proper context to recognize any text inaccuracies. Dictated by: Angeline Flores M.D. on 08/10/2023 at 13:06 Approved by: Angeline Flores M.D. on 08/10/2023 at 13:07
== END ==
PROVIDERS: PCP Family Medicine; Referring Provider Family Medicine; Visit Provider Family Medicine
DX: Z34.80 Encounter for supervision of other normal pregnancy, unspecified trimester (principal); Z3A.09 9 weeks gestation of pregnancy
CPT/HCPCS: 76801; 76817

== ENCOUNTER → 2023-08-17 12:39 | Outpatient (CLI) | payer OTHER, SELFPAY ==
[2023-08-17 13:10] LABS: Specimen Label NATERA
[2023-08-17 14:26] LABS: Add Manual Diff / Slide Review NO; Basophils Absolute Auto 0 /uL (0-100); Basophils Percent Auto 0.4 % (0-2); Eosinophils Absolute Auto 100 /uL (0-450); Hematocrit 36.2 % (36-46); Hemoglobin 12.6 g/dL (12.0-16.0); Lymphocytes Absolute Auto 2100 /uL (1100-4500); Lymphocytes Percent Auto 27.4 % (25-40); Mean Corpuscular HGB Conc 34.7 % (30-36); Mean Corpuscular Hemoglobin 31.5 PG (26-34); Mean Corpuscular Volume 90.6 fL (80-100); Monocytes Absolute Auto 500 /uL (0-900); Monocytes Percent Auto 7.1 % (3-14); Neutrophils Absolute Auto 4800 /uL (1500-7000); Neutrophils Percent Auto 64.1 % (50-75); Platelet Count 263 X10^3/uL (150-400); Red Blood Cell Count 3.99 X10^6/uL (4.0-5.2); Red Cell Distribution Width 12.5 % (11.6-14.8); White Blood Cell Count 7.5 X10^3/uL (4.5-11.0)
[2023-08-17 14:51] LABS: Alanine Aminotransferase 11 IU/L (<35); Aspartate Aminotransferase 19 IU/L (14-36); BUN Creatinine Ratio 13.3 (6-22); Blood Urea Nitrogen 6 mg/dL (7-17); Estimated Glomerular Filt Rate > 60 mL/min (>60); Uric Acid 2.2 mg/dL (2.5-6.2)
[2023-08-17 16:20] LABS: Rubella Antibody IgG 93.4 IU/mL (>15)
[2023-08-17 16:22] LABS: Hepatitis B Surface Antigen NEGATIVE s/c (NEGATIVE)
[2023-08-17 16:40] LABS: Appearance Urine UA CLEAR; Bilirubin Urine UA NEGATIVE (NEGATIVE); Color Urine UA YELLOW; Glucose Urine UA NEGATIVE (Negative); Ketones Urine UA NEGATIVE (NEGATIVE); Leukocyte Esterase Urine UA 1+ (NEGATIVE); Nitrite Urine UA NEGATIVE (Negative); Occult Blood Urine UA NEGATIVE (Negative); Protein Urine UA NEGATIVE (Negative); Specific Gravity Urine UA <=1.005 (1.000-1.035); Urobilinogen Urine UA 0.2 E.U./dL (0.2)
[2023-08-17 16:42] LABS: HIV 1 & 2 Ab/Ag 4th Gen Combo NEGATIVE (NEGATIVE); Hep C Virus Ab w/Reflex Quant NEGATIVE s/c (NEGATIVE)
[2023-08-17 16:50] LABS: pH Urine UA 5.5 (4.5-8.0)
[2023-08-17 16:54] LABS: Bacteria Urine Occasional (0-1); Culture Indicated Urine Cult Not Indicated; RBC Urine None Seen (0-5/HPF); Squamous Epithelial Cell Urine 0-1 /HPF (0-5/HPF); WBC Urine 0-1/HPF (0-5/HPF)
[2023-08-17 17:12] LABS: Protein (Total) Urine Random 13 mg/dL (0-12); Protein Creatinine Ratio Urine 0.72 GRAM/24H
[2023-08-18 05:26] LABS: RPR Screen Non Reactive (Non Reactive)
[2023-08-18 09:27] LABS: Varicella IgG Antibody 2365 index (Immune >165)
== END ==
PROVIDERS: PCP Family Medicine; Referring Provider Family Medicine; Visit Provider Family Medicine
DX: Z34.80 Encounter for supervision of other normal pregnancy, unspecified trimester (principal); O09.299 Supervision of pregnancy with other poor reproductive or obstetric history, unspecified trimester
CPT/HCPCS: 36415; 80055; 81003; 81015; 82565; 82570; 84156; 84450; 84460; 84520; 84550; 86787; 86803; 86850; 86900; 86901; 87389

== ENCOUNTER → 2023-08-24 07:43 | Outpatient (CLI) | payer OTHER, SELFPAY ==
[2023-08-25 14:01] LABS: Collection Time Urine 24 Hours; Protein (Total) Urine Random 13 mg/dL (0-12); Total Protein 24 Hour Urine 423 mg/day (42-225); Total Volume Urine 3250 mL
== END ==
PROVIDERS: PCP Family Medicine; Referring Provider Family Medicine; Visit Provider Family Medicine
DX: O09.299 Supervision of pregnancy with other poor reproductive or obstetric history, unspecified trimester (principal); R80.9 Proteinuria, unspecified
CPT/HCPCS: 84156

== ENCOUNTER → 2023-11-02 09:36 | Outpatient (CLI) | payer OTHER, SELFPAY ==
[2023-11-02 14:45] LABS: Collection Time Urine 24 Hours; Protein (Total) Urine Random 14 mg/dL (0-12); Total Protein 24 Hour Urine 420 mg/day (42-225); Total Volume Urine 3000 mL
== END ==
PROVIDERS: PCP Family Medicine; Referring Provider Family Medicine; Visit Provider Family Medicine
DX: O09.299 Supervision of pregnancy with other poor reproductive or obstetric history, unspecified trimester (principal); R80.9 Proteinuria, unspecified
CPT/HCPCS: 84156

== ENCOUNTER → 2023-12-21 07:58 | Outpatient (CLI) | payer OTHER, SELFPAY ==
[2023-12-21 11:02] LABS: Collection Time Urine 24 Hours; Creatinine 24 Hour Urine 1927 mg/day (800-1800); Creatinine Urine Random 50.7 mg/dL; Protein (Total) Urine Random 10 mg/dL (0-12); Total Protein 24 Hour Urine 380 mg/day (42-225); Total Volume Urine 3800 mL
== END ==
PROVIDERS: PCP Family Medicine; Referring Provider Family Medicine; Visit Provider Family Medicine
DX: R80.9 Proteinuria, unspecified (principal); Z34.80 Encounter for supervision of other normal pregnancy, unspecified trimester
CPT/HCPCS: 82570; 84156

== ENCOUNTER → 2023-12-30 10:44 | Outpatient (CLI) | payer OTHER, SELFPAY ==
[2023-12-30 13:53] LABS: Alanine Aminotransferase 9 IU/L (<35); Albumin 3.9 g/dL (3.5-5.0); Albumin Globulin Ratio 1.6 (1.0-2.8); Alkaline Phosphatase 59 U/L (38-126); Aspartate Aminotransferase 21 IU/L (14-36); BUN Creatinine Ratio 18.9 (6-22); Bilirubin Total 0.3 mg/dL (0.2-1.3); Blood Urea Nitrogen 10 mg/dL (7-17); Calcium 9.5 mg/dL (8.4-10.2); Carbon Dioxide 26 mmol/L (22-32); Chloride 104 mmol/L (98-107); Estimated Glomerular Filt Rate > 60 mL/min (>60); GTT (PREG) 1 Hour PP 50gm Dose 84 mg/dL (76-139); Globulin 2.5 g/dL (1.7-4.1); Glucose 84 mg/dL (70-100); HEMOLYSIS < 15 (0-50); Potassium 3.8 mmol/L (3.4-5.1); Sodium 136 mmol/L (137-145); Total Protein 6.4 g/dL (6.3-8.2)
== END ==
PROVIDERS: PCP Family Medicine; Referring Provider Family Medicine; Visit Provider Family Medicine
DX: R80.9 Proteinuria, unspecified (principal); Z34.80 Encounter for supervision of other normal pregnancy, unspecified trimester
CPT/HCPCS: 36415; 80053; 82950

== ENCOUNTER → 2024-02-02 11:26 | Outpatient (CLI) | payer OTHER, SELFPAY ==
[2024-02-02 13:11] LABS: Alanine Aminotransferase 9 IU/L (<35); Albumin 3.3 g/dL (3.5-5.0); Albumin Globulin Ratio 1.3 (1.0-2.8); Alkaline Phosphatase 99 U/L (38-126); Aspartate Aminotransferase 21 IU/L (14-36); Bilirubin Total 0.3 mg/dL (0.2-1.3); Blood Urea Nitrogen 4 mg/dL (7-17); Calcium 8.2 mg/dL (8.4-10.2); Carbon Dioxide 25 mmol/L (22-32); Chloride 106 mmol/L (98-107); Estimated Glomerular Filt Rate > 60 mL/min (>60); Globulin 2.6 g/dL (1.7-4.1); Glucose 89 mg/dL (70-100); HEMOLYSIS < 15 (0-50); Potassium 3.6 mmol/L (3.4-5.1); Sodium 134 mmol/L (137-145); Total Protein 5.9 g/dL (6.3-8.2)
[2024-02-02 14:38] LABS: Collection Time Urine 24 Hours; Creatinine 24 Hour Urine 1400 mg/day (800-1800); Creatinine Clearance Urine 194.4 mL/MIN; Creatinine Urine Random 22.95 mg/dL; Protein (Total) Urine Random 15 mg/dL (0-12); Total Protein 24 Hour Urine 915 mg/day (42-225); Total Volume Urine 6100 mL
== END ==
PROVIDERS: PCP Family Medicine; Referring Provider Family Medicine; Visit Provider Family Medicine
DX: R80.9 Proteinuria, unspecified (principal)
CPT/HCPCS: 36415; 80053; 82570; 82575; 84156

== ENCOUNTER 2024-02-15 08:39 | Outpatient (CLI) | payer OTHER, SELFPAY ==
--- NOTE | 2024-02-15 09:21 | PM.OBTRLD ---
Visit Information Visit Information Date of evaluation: 02/15/24 Primary OB Provider: Melissa Sykes Comments/Additional reasons for admission: 33yo at 36w0d here for NST for proteinuria. She is feeling her baby move regularly. [facility] Medical History (Updated 11/11/23 @ 08:16 by Melissa Sykes MD) Sore nipples due to Vacuum-assisted vaginal delivery Pre-eclampsia HSV-1 infection (~2005) Kidney stone (~2001) Surgical History (Updated 07/27/23 @ 14:42 by Rahel Salazar, RN) History of urologic surgery History of lithotripsy [place] teeth extracted (~2008) Family History (Updated 07/27/23 @ 14:44 by Rahel Salazar, RN) Mother Hypertension Father Arthritis Reflux esophagitis Grandmother Heart valve replaced H/O: hysterectomy Grandfather Alzheimer disease Grandmother Dementia Grandfather Pulmonary embolism Kidney stone Esophageal cancer Brother Obesity Social History marital status: number of children: 1 household members: spouse lives independently: Yes caregiver/support person: No housing: house pets and animals: Yes (1 dog) education level: college occupational status: employed ([employer], 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)) current occupational exposures/hazards: No special mera needs: No travel history: recent (domestic only; going to [place] next week) leisure activities: exercise seatbelt use: always helmet use: Yes water heater temp set < 120 deg: Yes working smoke detector in home: Yes fire extinguisher in home: No (will get one) carbon monox detector in home: Yes firearms in home: Yes firearms unloaded and locked: Yes do you feel safe at home: Yes Smoking Status: Never smoker second hand exposure: No alcohol intake: former (~2-3/week when not ) substance use type: does not use during the past year weight has: remained stable well-balanced diet: daily or most days daily servings fruits/ve or more times/day caffeine: Yes (~2 K-cups or espresso shots/day) Type(s) of exercise: walking, bicycling and yoga frequency: 3-4 times per week duration: 30-45 minutes/day Evaluation Evaluation Baseline heart rate: 135 Variability: Moderate (11-25) monitor accelerations: Present Monitor Decelerations: Absent Category of Tracing: Reactive Diagnosis, Plan/Disposition Final Diagnosis (1) Proteinuria: Status: Acute Plan/Disposition Plan: 33yo at 36w0d here for NST for proteinuria. NST reactive. Continue testing as recommended by MFM. OB Disposition: home
== END 2024-02-15 09:05 | disposition home or self-care (01) ==
LOC: OB 03-21 10:23
PROVIDERS: PCP Family Medicine; Referring Provider Family Medicine; Visit Provider Family Medicine
DX: O12.13 Gestational proteinuria, third trimester (principal); Z3A.36 36 weeks gestation of pregnancy
CPT/HCPCS: 59025; G0378; G0379

== ENCOUNTER → 2024-02-16 11:12 | Outpatient (CLI) | payer OTHER, SELFPAY ==
[2024-02-17 15:22] LABS: Strep Grp B PCR NEG for Grp B Strep
== END ==
PROVIDERS: PCP Family Medicine; Visit Provider Family Medicine
DX: Z34.80 Encounter for supervision of other normal pregnancy, unspecified trimester (principal)
CPT/HCPCS: 87653

== ENCOUNTER 2024-02-16 11:59 | Observation (INO) | payer OTHER, SELFPAY ==
--- NOTE | 2024-02-16 12:40 | DI.US.S_ITS ---
PROCEDURE: US OB LIMITED INDICATIONS: CARDIAC ARRHYTHMIA OUTSIDE/PRIOR DATING DATA: Last menstrual period (LMP): 06/08/2023. LMP-based estimated date of delivery (ROSALINDA): 03/14/2024. First dating scan (date and location): 08/10/2023. Estimated date of delivery (ROSALINDA) from first dating scan: 03/12/2020. The calculations are made using the working ROSALNIDA of 03/14/2024. TECHNIQUE: Real-time scanning was performed of the fetus, with image documentation and biometric measurements. Biophysical profile was also obtained. Endovaginal scanning: Not performed COMPARISON: US, US OB <= 14 WEEKS FETUS, 08/10/2023, 12:18. FINDINGS: General: A single living intrauterine gestation is present. Presentation: Vertex. Placenta: Placental position is anterior , without previa. Amniotic fluid index: 11.1 cm, normal range is 5-24 cm. Single deepest vertical pocket is 6.7 cm. heart rate: 155 beats per minute. Maternal cervical canal: Not visualized. biometrics: Not performed Clinically estimated gestational age: 36 weeks 1 day Biophysical profile: Tone: 2 points. Movement: 2 points. Respiration: 2 points. Largest pocket of fluid: 2 points. IMPRESSION: 1. A single living intrauterine gestation redemonstrated. 2. heart is grossly normal. The heart rate is 155 BPM. 3. biophysical profile score 8 out of 8. We strive to produce accurate, complete, and clear reports of imaging services. To assist us in improving patient care, this report was composed using standard report templates and voice recognition software. Therefore, it may contain abnormal punctuation, insertions and/or omissions. Occasional wrong-word or sound-alike substitutions may occur. Though we review the report and make efforts to correct it, we do recommend that the report be read carefully in proper context to recognize any text inaccuracies. Dictated by: Lee Lowe M.D. on 02/16/2024 at 15:00 Approved by: Lee Lowe M.D. on 02/16/2024 at 15:04
--- NOTE | 2024-02-16 12:55 | P.TNLD_ITS ---
Visit Information Visit Information Date of evaluation: 02/16/24 Primary OB Provider: Melissa Sykes Comments/Additional reasons for admission: 33yo at 36w1d here for NST due possible arrhythmia heard in clinic. Pt reports feeling consistent movement. No LOF, vaginal bleeding, contractions. She has overall been feeling well, just slightly slow compared to normal. [facility] Medical History (Updated 02/16/24 @ 15:19 by Melissa Sykes MD) Sore nipples due to Vacuum-assisted vaginal delivery Pre-eclampsia HSV-1 infection (~2005) Kidney stone (~2001) Surgical History (Updated 07/27/23 @ 14:42 by Rahel Salazar, RN) History of urologic surgery History of lithotripsy [place] teeth extracted (~2008) Family History (Updated 07/27/23 @ 14:44 by Rahel Salazar, RN) Mother Hypertension Father Arthritis Reflux esophagitis Grandmother Heart valve replaced H/O: hysterectomy Grandfather Alzheimer disease Grandmother Dementia Grandfather Pulmonary embolism Kidney stone Esophageal cancer Brother Obesity Social History marital status: number of children: 1 household members: spouse lives independently: Yes caregiver/support person: No housing: house pets and animals: Yes (1 dog) education level: college occupational status: employed ([employer], 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)) current occupational exposures/hazards: No special mera needs: No travel history: recent (domestic only; going to [place] next week) leisure activities: exercise seatbelt use: always helmet use: Yes water heater temp set < 120 deg: Yes working smoke detector in home: Yes fire extinguisher in home: No (will get one) carbon monox detector in home: Yes firearms in home: Yes firearms unloaded and locked: Yes do you feel safe at home: Yes Smoking Status: Never smoker second hand exposure: No alcohol intake: former (~2-3/week when not ) substance use type: does not use during the past year weight has: remained stable well-balanced diet: daily or most days daily servings fruits/ve or more times/day caffeine: Yes (~2 K-cups or espresso shots/day) Type(s) of exercise: walking, bicycling and yoga frequency: 3-4 times per week duration: 30-45 minutes/day Objective Imaging us OB limited: My impression: No evidence hydrops Radiologist's impression: 1. A single living intrauterine gestation redemonstrated. 2. heart is grossly normal. The heart rate is 155 BPM. 3. biophysical profile score 8 out of 8. Labs 02/16/24 13:01 Evaluation Evaluation Comments: FHT baseline 150, variability, accels, and decels difficult to determine due to arrythmia, however appears to have accels present. Intermittent drop-out style decels to the 70s that can be heard in the room lasting up to 30 seconds duration. Frequent skipping or acceleration of beats, sometimes with longer pauses between beats. Diagnosis, Plan/Disposition Final Diagnosis (1) arrhythmia affecting , antepartum: Status: Acute Plan/Disposition Plan: 33yo at 36w1d here for NST due possible arrhythmia heard in clinic. Pt does have evidence of arrhythmia based on prolonged monitoring in L&D today. Pt continues to feel movement, and BPP 8/8 without evidence of hydrops and cardiac structures grossly normal in appearance. TSH normal range. Discussed care with ZAMZAM Rodriguez through the . She recommended outpatient Echo, which will be completed through [facility] later this week. Recommended kick counts at home/strict movement monitoring. Feels safe for d/c home today. Discussed with patient, okay with plan. Stable for d/c home. [facility] will contact her about scheduling later today. OB Disposition: home
[2024-02-16 13:12] LABS: Add Manual Diff / Slide Review NO; Basophils Absolute Auto 0 /uL (0-100); Basophils Percent Auto 0.3 % (0-2); Eosinophils Absolute Auto 100 /uL (0-450); Eosinophils Percent Auto 0.9 % (2-4); Hematocrit 34.9 % (36-46); Hemoglobin 11.9 g/dL (12.0-16.0); Lymphocytes Absolute Auto 2200 /uL (1100-4500); Lymphocytes Percent Auto 18.9 % (25-40); Mean Corpuscular HGB Conc 34.2 % (30-36); Mean Corpuscular Hemoglobin 30.8 PG (26-34); Mean Corpuscular Volume 90.1 fL (80-100); Monocytes Absolute Auto 900 /uL (0-900); Monocytes Percent Auto 7.7 % (3-14); Neutrophils Absolute Auto 8500 /uL (1500-7000); Neutrophils Percent Auto 72.2 % (50-75); Platelet Count 250 X10^3/uL (150-400); Red Blood Cell Count 3.88 X10^6/uL (4.0-5.2); Red Cell Distribution Width 12.5 % (11.6-14.8); White Blood Cell Count 11.8 X10^3/uL (4.5-11.0)
[2024-02-16 13:56] LABS: TSH w/ Reflex to FT4 0.66 uIU/mL (0.47-4.68)
== END 2024-02-16 13:34 | disposition home or self-care (01) ==
PROVIDERS: Admitting Provider Family Medicine; PCP Family Medicine; Referring Provider Family Medicine; Visit Provider Family Medicine
DX: O36.8330 Maternal care for abnormalities of the fetal heart rate or rhythm, third trimester, not applicable or unspecified (principal); Z3A.36 36 weeks gestation of pregnancy
CPT/HCPCS: 36415; 59025; 76815; 76819; 84443; 85025; 87653; G0378; G0379

== ENCOUNTER 2024-02-26 08:00 | Outpatient (CLI) | payer OTHER, SELFPAY ==
--- NOTE | 2024-02-26 08:35 | P.TNLD_ITS ---
ON LICENSE OF [facility] Medical History (Updated 02/16/24 @ 15:19 by Melissa Sykes MD) Sore nipples due to Vacuum-assisted vaginal delivery Pre-eclampsia HSV-1 infection (~2005) Kidney stone (~2001) Surgical History (Updated 07/27/23 @ 14:42 by Rahel Salazar, RN) History of urologic surgery History of lithotripsy [place] teeth extracted (~2008) Family History (Updated 07/27/23 @ 14:44 by Rahel Salazar, RN) Mother Hypertension Father Arthritis Reflux esophagitis Grandmother Heart valve replaced H/O: hysterectomy Grandfather Alzheimer disease Grandmother Dementia Grandfather Pulmonary embolism Kidney stone Esophageal cancer Brother Obesity Social History marital status: number of children: 1 household members: spouse lives independently: Yes caregiver/support person: No housing: house pets and animals: Yes (1 dog) education level: college occupational status: employed ([employer], 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)) current occupational exposures/hazards: No special mera needs: No travel history: recent (domestic only; going to [place] next week) leisure activities: exercise seatbelt use: always helmet use: Yes water heater temp set < 120 deg: Yes working smoke detector in home: Yes fire extinguisher in home: No (will get one) carbon monox detector in home: Yes firearms in home: Yes firearms unloaded and locked: Yes do you feel safe at home: Yes Smoking Status: Never smoker second hand exposure: No alcohol intake: former (~2-3/week when not ) substance use type: does not use during the past year weight has: remained stable well-balanced diet: daily or most days daily servings fruits/ve or more times/day caffeine: Yes (~2 K-cups or espresso shots/day) Type(s) of exercise: walking, bicycling and yoga frequency: 3-4 times per week duration: 30-45 minutes/day Evaluation Evaluation Baseline heart rate: 140 Variability: Average (6-10) monitor accelerations: Present Monitor Decelerations: Absent Category of Tracing: Reactive Status: Category l Comments: reactive NST f/u with primary OB as scheduled
== END 2024-02-26 08:35 | disposition home or self-care (01) ==
LOC: OB 02-29 06:17
PROVIDERS: PCP Family Medicine; Referring Provider Family Medicine; Visit Provider Family Medicine
DX: O47.1 False labor at or after 37 completed weeks of gestation (principal); O36.8330 Maternal care for abnormalities of the fetal heart rate or rhythm, third trimester, not applicable or unspecified; Z3A.37 37 weeks gestation of pregnancy
CPT/HCPCS: 59025; G0378; G0379

== ENCOUNTER 2024-03-04 08:26 | Observation (INO) | payer OTHER, SELFPAY ==
--- NOTE | 2024-03-04 09:16 | PM.OBTRLD ---
Visit Information Visit Information Date of evaluation: 03/04/24 Primary OB Provider: Melissa Sykes Comments/Additional reasons for admission: 33yo at 38w4d here for NST for proteinuria. No vaginal bleeding or LOF. Intermittent mild contractions. Feeling baby move regularly. [facility] Medical History (Updated 02/16/24 @ 15:19 by Melissa Sykes MD) Sore nipples due to Vacuum-assisted vaginal delivery Pre-eclampsia HSV-1 infection (~2005) Kidney stone (~2001) Surgical History (Updated 07/27/23 @ 14:42 by Rahel Salazar, RN) History of urologic surgery History of lithotripsy [place] teeth extracted (~2008) Family History (Updated 07/27/23 @ 14:44 by Rahel Salazar, RN) Mother Hypertension Father Arthritis Reflux esophagitis Grandmother Heart valve replaced H/O: hysterectomy Grandfather Alzheimer disease Grandmother Dementia Grandfather Pulmonary embolism Kidney stone Esophageal cancer Brother Obesity Social History marital status: number of children: 1 household members: spouse lives independently: Yes caregiver/support person: No housing: house pets and animals: Yes (1 dog) education level: college occupational status: employed ([employer], 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)) current occupational exposures/hazards: No special mera needs: No travel history: recent (domestic only; going to [place] next week) leisure activities: exercise seatbelt use: always helmet use: Yes water heater temp set < 120 deg: Yes working smoke detector in home: Yes fire extinguisher in home: No (will get one) carbon monox detector in home: Yes firearms in home: Yes firearms unloaded and locked: Yes do you feel safe at home: Yes Smoking Status: Never smoker second hand exposure: No alcohol intake: former (~2-3/week when not ) substance use type: does not use during the past year weight has: remained stable well-balanced diet: daily or most days daily servings fruits/ve or more times/day caffeine: Yes (~2 K-cups or espresso shots/day) Type(s) of exercise: walking, bicycling and yoga frequency: 3-4 times per week duration: 30-45 minutes/day Evaluation Evaluation Baseline heart rate: 130 Variability: Moderate (11-25) monitor accelerations: Present Monitor Decelerations: Absent Category of Tracing: Reactive Cervical dilation (cm): 1 Cervical effacement (%): 30 station: -2 Diagnosis, Plan/Disposition Final Diagnosis (1) Proteinuria: Status: Acute (2) History of pre-eclampsia in prior , currently : Status: Acute Plan/Disposition Plan: 33yo at 38w4d here for NST for proteinuria. NST reactive. Membranes swept today. OB Disposition: home
== END 2024-03-04 09:10 | disposition home or self-care (01) ==
PROVIDERS: Admitting Provider Family Medicine; PCP Family Medicine; Referring Provider Family Medicine; Visit Provider Family Medicine
DX: O12.13 Gestational proteinuria, third trimester (principal); O47.1 False labor at or after 37 completed weeks of gestation; Z87.59 Personal history of other complications of pregnancy, childbirth and the puerperium; Z3A.33 33 weeks gestation of pregnancy
CPT/HCPCS: 59025; G0378; G0379

== ENCOUNTER 2024-03-07 10:55 | Outpatient (CLI) | payer OTHER, SELFPAY ==
--- NOTE | 2024-03-07 11:33 | DI.US.S_ITS ---
PROCEDURE: US OB LIMITED INDICATIONS: OUTSIDE/PRIOR DATING DATA: Last menstrual period (LMP): 06/08/2023. LMP-based estimated date of delivery (ROSALINDA): 03/14/2024. TECHNIQUE: Real-time scanning was performed of the fetus, with image documentation. Biophysical profile was obtained. Endovaginal scanning: Not performed COMPARISON: [facility], OB LIMITED, 02/16/2024, 13:09. FINDINGS: A single living intrauterine gestation is present. Presentation: Vertex. Placenta: Placental position is anterior, without previa. Amniotic fluid index: 14.8 cm, normal range is 5-24 cm. Single deepest vertical pocket is 5.1 cm. heart rate: 136 beats per minute. Maternal cervical canal: 4.6 cm long. Normal lower limit is 2.5 cm. Clinically estimated gestational age: 39 weeks 0 days BPP 8 of 8. Umbilical artery is patent. IMPRESSION: Single living intrauterine at 39 weeks 0 days, ROSALINDA of 03/14/2024. BPP 8 of 8. Dictated by: Jorge Alberto Anne M.D. on 03/07/2024 at 13:24 Approved by: Jorge Alberto Anne M.D. on 03/07/2024 at 13:25
--- NOTE | 2024-03-07 12:50 | PM.OBTRLD ---
Visit Information Visit Information Date of evaluation: 03/07/24 Primary OB Provider: Melissa Sykes Comments/Additional reasons for admission: 33yo at 39w0d here for NST/BPP for proteinuria. She is having intermittent contractions. No LOF, vaginal bleeding. [facility] Medical History (Updated 02/16/24 @ 15:19 by Melissa Sykes MD) Sore nipples due to Vacuum-assisted vaginal delivery Pre-eclampsia HSV-1 infection (~2005) Kidney stone (~2001) Surgical History (Updated 07/27/23 @ 14:42 by Rahel Salazar, RN) History of urologic surgery History of lithotripsy [place] teeth extracted (~2008) Family History (Updated 07/27/23 @ 14:44 by Rahel Salazar, RN) Mother Hypertension Father Arthritis Reflux esophagitis Grandmother Heart valve replaced H/O: hysterectomy Grandfather Alzheimer disease Grandmother Dementia Grandfather Pulmonary embolism Kidney stone Esophageal cancer Brother Obesity Social History marital status: number of children: 1 household members: spouse lives independently: Yes caregiver/support person: No housing: house pets and animals: Yes (1 dog) education level: college occupational status: employed ([employer], 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)) current occupational exposures/hazards: No special mera needs: No travel history: recent (domestic only; going to [place] next week) leisure activities: exercise seatbelt use: always helmet use: Yes water heater temp set < 120 deg: Yes working smoke detector in home: Yes fire extinguisher in home: No (will get one) carbon monox detector in home: Yes firearms in home: Yes firearms unloaded and locked: Yes do you feel safe at home: Yes Smoking Status: Never smoker second hand exposure: No alcohol intake: former (~2-3/week when not ) substance use type: does not use during the past year weight has: remained stable well-balanced diet: daily or most days daily servings fruits/ve or more times/day caffeine: Yes (~2 K-cups or espresso shots/day) Type(s) of exercise: walking, bicycling and yoga frequency: 3-4 times per week duration: 30-45 minutes/day Evaluation Evaluation Baseline heart rate: 130 Variability: Moderate (11-25) monitor accelerations: Present Monitor Decelerations: Absent Category of Tracing: Reactive Cervical dilation (cm): 1 Cervical effacement (%): 30 station: -2 Diagnosis, Plan/Disposition Final Diagnosis (1) Proteinuria: Status: Acute Plan/Disposition Plan: 33yo at 39w0d here for NST/BPP for proteinuria. Reactive NST, BPP 8/8. Stable for d/c home. IOL schedule for later this week. OB Disposition: home
== END 2024-03-07 12:30 | disposition home or self-care (01) ==
LOC: LABOR 11:14 → OB 03-10 08:22
PROVIDERS: PCP Family Medicine; Referring Provider Family Medicine; Visit Provider Family Medicine
DX: O12.13 Gestational proteinuria, third trimester (principal); Z3A.39 39 weeks gestation of pregnancy
CPT/HCPCS: 59025; 59050; 76815; G0378; G0379

== ENCOUNTER 2024-03-10 19:30 | Inpatient (IN) | payer OTHER, SELFPAY ==
[2024-03-10 21:10] VITALS: BP 124/83
[2024-03-10 21:15] LABS: Add Manual Diff / Slide Review NO; Basophils Absolute Auto 0 /uL (0-100); Basophils Percent Auto 0.3 % (0-2); Eosinophils Absolute Auto 100 /uL (0-450); Eosinophils Percent Auto 1.1 % (2-4); Hematocrit 34.1 % (36-46); Hemoglobin 11.6 g/dL (12.0-16.0); Lymphocytes Absolute Auto 2500 /uL (1100-4500); Lymphocytes Percent Auto 23.7 % (25-40); Mean Corpuscular Hemoglobin 30.6 PG (26-34); Mean Corpuscular Volume 89.9 fL (80-100); Monocytes Absolute Auto 800 /uL (0-900); Monocytes Percent Auto 7.9 % (3-14); Neutrophils Absolute Auto 7100 /uL (1500-7000); Platelet Count 233 X10^3/uL (150-400); Red Blood Cell Count 3.79 X10^6/uL (4.0-5.2); Red Cell Distribution Width 13.1 % (11.6-14.8); White Blood Cell Count 10.6 X10^3/uL (4.5-11.0)
[2024-03-10] MEDS: miSOPROStoL 25 MCG TABLET 50 MCG PO (21:37)
[2024-03-11] MEDS: miSOPROStoL 25 MCG TABLET 50 MCG PO (01:42)
--- NOTE | 2024-03-11 08:38 | P.HPOB_ITS ---
OB HPI Date/Time Date of admission: 03/10/24 Date Patient Seen: 03/11/24 History of Present Condition Chief complaint: INDUCTION ROSALINDA Calculator 2 Estimated Delivery Date Method Current WG Current Estimate 03/14/24 Manual 39w 4d Final ROSALINDA - ASHA Other Estimates 03/14/24 LMP (Certain) 39w 4d 03/12/24 Ultrasound #1 39w 6d Estimated Gestational Age (weeks): 39w4d : 2 Para: 1 Narrative: 33yo at 39w4d here for IOL due to proteinuria. The pt reports mild intermittent contractions prior to presentation, now slightly stronger and closer together. She lost her mucus plug, but otherwise denies any vaginal bleeding or LOF. She is feeling her baby move regulary. The pts was complicated by proteinuria. Due to a history of pre- eclampsia with her last , baseline labs were ordered that showed an elevated 24hr protein (423) but no elevation in her BP. The pt was seen by Nephrology, who recommended assessment, and MFM who recommended close BP monitoring, baby aspirin, and serial monitoring of her 24hr proteins. The pts BP remained stable throughout her . She is being induced now as per [facility] recommendations. The pt was also noted to have an irregular FHT at 36w1d, confirmed on prolonged monitoring in L&D. echo showed PACs, without any additional work-up warranted. The arrythmia had resolved on her last several NSTs. care: good care, initiated at week # (10) and pounds weight gain (33) Dating criteria OB: LMP confirmed by 1st trimester US Ultrasounds: normal 1st trimester US and normal mid trimester US Medical complications OB: none Indications Indication for induction OB: other (proteinuria) Preadmission Labs Last OB Lab Results: 2 Blood Type A Positive 03/10/24 20:45 Antibody Screen Negative 03/10/24 20:45 Hematocrit 34.1 % (36-46) L 03/10/24 20:45 Hemoglobin 11.6 g/dL (12.0-16.0) L 03/10/24 20:45 Hepatitis B Surface Antigen Negative s/c (NEGATIVE) 08/17/23 12 :48 Hepatitis C Antibody Negative s/c (NEGATIVE) 08/17/23 12:48 Rubella Antibody 93.4 IU/mL (>15) 08/17/23 12:48 Varicella-Zoster IgG Antibody 2365 index (Immune >165) 08/17/23 12:48 Glucose 1 Hour 84 mg/dL (76-139) 12/30/23 11:25 Group B Streptococcus (PCR) Neg for grp b strep 02/16/24 11:40 -: Urine: negative Genetic Screens: Cell-free DNA: Normal External Labs -: Urine: negative Prior (ies) Past Pregnancies Del. Date GA/Weeks Labor Lgth Wt Sex Route Outcome Anesthesia Place Delv Breastfeed Preg Comp Name 02/01/21 38.5 16 8 lb Male vaginal vacuum live - full term IH 1 year pre-e clampsia other Gopal Delivery Date: 02/01/21 Last Updated by: Rahel Salazar RN sciatica Evaluation Evaluation Baseline heart rate: 120 Variability: Moderate (11-25) monitor accelerations: Present Monitor Decelerations: Absent Contraction Frequency (minutes): 3 Uterine Contraction Intensity: Mild Status: Category l Dilation (cm): 2 Effacement (%): 90 Dilation: 1-2 cm Effacement: >/=80% station: -1 Position of cervix: mid Consistency: soft Harris score: 9 PFSH Medical History (Updated 02/16/24 @ 15:19 by Melissa Sykes MD) Sore nipples due to Vacuum-assisted vaginal delivery Pre-eclampsia HSV-1 infection (~2005) Kidney stone (~2001) Surgical History (Updated 07/27/23 @ 14:42 by Rahel Salazar RN) History of urologic surgery History of lithotripsy [place] teeth extracted (~2008) Family History (Updated 07/27/23 @ 14:44 by Rahel Salazar RN) Mother Hypertension Father Arthritis Reflux esophagitis Grandmother Heart valve replaced H/O: hysterectomy Grandfather Alzheimer disease Grandmother Dementia Grandfather Pulmonary embolism Kidney stone Esophageal cancer Brother Obesity Social History marital status: number of children: 1 household members: spouse lives independently: Yes caregiver/support person: No housing: house pets and animals: Yes (1 dog) education level: college occupational status: employed (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[place] current occupational exposures/hazards: No special mera needs: No travel history: recent (domestic only; going to [place] next week) leisure activities: exercise seatbelt use: always helmet use: Yes water heater temp set < 120 deg: Yes working smoke detector in home: Yes fire extinguisher in home: No (will get one) carbon monox detector in home: Yes firearms in home: Yes firearms unloaded and locked: Yes do you feel safe at home: Yes Smoking Status: Never smoker second hand exposure: No alcohol intake: former (~2-3/week when not ) substance use type: does not use during the past year weight has: remained stable well-balanced diet: daily or most days daily servings fruits/ve or more times/day caffeine: Yes (~2 K-cups or espresso shots/day) Type(s) of exercise: walking, bicycling and yoga frequency: 3-4 times per week duration: 30-45 minutes/day Meds Home Medications and Allergies Home Medications Medication Instructions Recorded Confirmed Type prenat.vits,evy,knf-gfdo-wkblv 1 tab PO DAILY 07/13/20 03/01/24 History breast pump #1 ea 12/26/20 03/01/24 Rx Collagen PO 07/27/23 03/01/24 History magnesium amino acid chelate 100 300 mg PO DAILY 07/27/23 03/01/24 History mg tablet aspirin 81 mg tablet,delayed 81 mg PO DAILY 02/02/24 03/01/24 History release omeprazole 20 mg capsule,delayed 20 mg PO DAILY 02/02/24 03/01/24 History release amoxicillin 875 mg-potassium 1 tab PO BID #10 tabs 02/16/24 03/01/24 Rx clavulanate 125 mg tablet Double Electric Breast Pump and #1 ea 03/08/24 03/08/24 Rx Supplies Allergies Allergy/AdvReac Type Severity Reaction Status Date / Time No Known Drug Allergies Allergy Verified 03/01/24 11:11 OB Exam Resp Effort & Inspection: normal respiratory effort Auscultation: clear to auscultation bilaterally Cardio Rate: regular rate Rhythm: regular rhythm Heart Sounds: S1 normal, S2 normal and no murmurs GI Inspection: non-distended Palpation: Yes soft and No tender Presentation: vertex Objective Labs 03/10/24 20:45 Labs: Laboratory Results - last 24 hr 03/10/24 20:45 WBC 10.6 RBC 3.79 L Hgb 11.6 L Hct 34.1 L MCV 89.9 MCH 30.6 MCHC 34.0 RDW 13.1 Plt Count 233 Neut % (Auto) 67.0 Lymph % (Auto) 23.7 L [place] % (Auto) 7.9 Eos % (Auto) 1.1 L Baso % (Auto) 0.3 Neut # (Auto) 7100 H Lymph # (Auto) 2500 [place] # (Auto) 800 Eos # (Auto) 100 Baso # (Auto) 0 Blood Type A Positive Antibody Screen Negative Assessment and Plan Assessment and Plan Assessment and Plan narrative: 33yo at 39w4d here for IOL for proteinuria. GBS negative, Rh positive. Pt received 2 doses of cytotec overnight. With some cervical change now, feels contractions getting stronger. Harris score 9. - Expectant management, anticipate - Pt would like to avoid pitocin. Discussed options including sher catheter, AROM, natural methods of labor inductions such as nipple stimulation. Pt prefers natural methods for now. Will check in 1-2hrs. If without cervical change, consider alternative. - GBS negative, no prophylaxis indicated - FHT reassuring, intermittent monitoring okay - Desires natural methods for pain control
--- NOTE | 2024-03-11 11:33 | PM.OBPNLAB ---
Date/Time Date Patient Seen: 03/11/24 Time Patient Seen: 11:10 Pain Control Pain control: tolerating well Pelvic Exam Dilation (cm): 2.5 Effacement (%): 90 station: -1 Contractions Monitor mode: External Contraction intensity: Moderate Status status: Category l Heart Rate Baseline: 130 Assessment and Plan Comments: 33yo at 39w4d here for IOL for proteinuria. GBS negative, Rh positive. Received 2 doses of cytotec last night. No significant additional cervical change thus far this morning. After informed consent, sher catheter placed and inflated with 60cc NS, gentle traction applied. - Expectant management, anticipate - FHT reassuring with intermittent monitoring - Desires natural methods for pain control - Sher to remain in for max 12hrs
--- NOTE | 2024-03-11 13:43 | PM.OBPNLAB ---
Date/Time Date Patient Seen: 03/11/24 Time Patient Seen: 13:43 Pain Control Pain control: tolerating well Pelvic Exam Dilation (cm): 5 Effacement (%): 90 station: -1 Amniotic membrane status: Ruptured Comments: After informed consent, AROM performed with copious clear fluid present. Contractions Monitor mode: External Contraction intensity: Moderate Status Heart Rate Baseline: 150 Monitor Accelerations: Present Assessment and Plan Comments: 33yo at 39w4d here for IOL for proteinuria. GBS negative, Rh positive. Received 2 doses of cytotec last night. Gardner placed this morning that fell out. Now with AROM and clear fluid. - Expectant management, anticipate - FHT reassuring with intermittent monitoring - Desires natural methods for pain control
--- NOTE | 2024-03-11 15:45 | PM.OBPRVD ---
Labor & Delivery Delivery date: 03/11/24 Cervical ripening method: per misoprostal protocol Induction method: other (sher catheter) Delivery augmentation: rupture of membranes Delivery monitor: external FHT and external uterine Route of delivery: Episiotomy description: None L&D Laceration Description: Perineal - 1st Degree Quantitative Blood Loss: 300 Anesthesia Type: None Complications: None Narrative: PROCEDURE: at 39w4d presented for IOL for proteinuria and was admitted to Labor and Delivery. She received cytotec for induction, then sher catheter. The patient progressed through the 1st stage over 2 hours. AROM occured at 13:35 with clear fluid. Pain was controlled with natural methods. The patient progressed through the 2nd stage over 33 minutes and delivered a viable female infant with APGARs 8/9 at 15:18 via without complications. The cord was cut and clamped after it stopped pulsating. The placenta delivered with gentle cord traction, and appeared complete. The perineum and vagina were inspected with 1st degree perineal laceration that was hemostatic and not repaired. Needle and sponge counts were correct.? The vagina was inspected and no items were left in situ. Donna was doing well with Suzie, her and her , Jose, at bedside. PREPROCEDURE DIAGNOSIS: Intrauterine at 39w4d Proteinuria PACs GBS negative RH positive POSTPROCEDURE DIAGNOSIS: Intrauterine at 39w4d, delivered Same as preprocedure [place] Baby 1: Infant gender: Female Presentation: vertex Position: Right Occiput Anterior Placenta delivery description: Spontaneous Cord Vessel Description: 3 Vessels score (1 min): 8 score (5 min): 9 weight: 8 lb 1.949 oz Plan for aftercare: Routine care
[2024-03-11] MEDS: ACETAMINOPHEN 325 MG TABLET 650 MG PO (16:22)
[2024-03-11] MEDS: LANOLIN OINT 7 GM 1 APPLIC TOP (16:23)
[2024-03-11] MEDS: IBUPROFEN 600 MG TABLET PO (16:23)
[2024-03-11] MEDS: TRANEXAMIC ACID 1,000 MG in SODIUM CHLORIDE 0.9% 100 ML 200 MG IV (16:23)
[2024-03-11] MEDS: DERMOPLAST SPRAY 20% 60 ML 1 SPRAY TOP (17:24)
[2024-03-12] MEDS: IBUPROFEN 600 MG TABLET PO ×2 (01:46→08:50)
[2024-03-12] MEDS: ACETAMINOPHEN 325 MG TABLET 650 MG PO ×2 (01:47→08:51)
[2024-03-12] MEDS: FERROUS SULFATE 325 MG TABLET PO (08:51)
[2024-03-12] MEDS: PRENATAL VIT,CALC/IRON/FOLIC 1 TABLET 1 TAB PO (08:52)
[2024-03-12] MEDS: DOCUSATE 100 MG CAPSULE PO (08:52)
[2024-03-12 09:48] LABS: Hematocrit 32.8 % (36-46); Hemoglobin 11.1 g/dL (12.0-16.0)
--- NOTE | 2024-03-12 11:27 | PM.OBDS.1 ---
Discharge Providers Provider Date of admission: 03/10/24 19:30 Discharge Date: 03/12/24 Primary care physician: Melissa Sykes MD Consults: 03/12/24 15:44 Consult to Ecommerce Project Manager Routine Comment: Discharge provider: Melissa Sykes MD Summary Hospital Course Date Patient Seen: 03/12/24 Time Patient Seen: 11:30 Diagnoses: Intrauterine at 39w4d Proteinuria PACs GBS negative RH positive Hospital Course: The pt presented for IOL for proteinuria. She received cytotec followed by sher for IOL. AROM was performed with clear fluid present. She progressed to complete and had an of a viable baby girl without complications. , there were no complications. At the time of discharge she was voiding, ambulating, and passing flatus without difficulty. Her lochia was decreasing appropriately. Her pain was well controlled. She was , working on latch with a nipple shield. She will f/u in 6 weeks for check. Her will be deployed for the next 6 months for initial contraception. Peripartum Data Infant Delivery Method: Natural Vaginal Laceration Description: Perineal - 1st Degree Episiotomy description: None Procedures: Spontaneous vaginal delivery complications: none 1: Gender: Female Disposition of : home Time Spent with Patient Time attestation: Total time spent providing and/or coordinating discharge services: Objective Labs 03/12/24 09:40 Labs: Laboratory Results - last 24 hr 03/12/24 09:40 Hgb 11.1 L Hct 32.8 L Exam Narrative Exam Narrative: Gen: NAD, sitting comfortably in bed, appears well CV: RRR, no murmurs Resp: clear to auscultation bilaterally Abd: soft, appropriately tender, fundus firm and below the umbilicus, nondistended Ext: no edema Discharge Plan Discharge Plan Patient Disposition: Home Discharge orders & Medications Prescriptions: New acetaminophen 325 mg Tablet 650 mg PO Q6HR PRN (Reason: Pain, Mild (1-3)) Qty: 30 0RF docusate sodium 100 mg Capsule 100 mg PO DAILY Qty: 30 0RF ibuprofen 600 mg Tablet 600 mg PO Q6HR PRN (Reason: Pain, Mild (1-3)) Qty: 30 0RF Continued prenat.vits,evy,ojg-haru-soqae Tablet 1 tab PO DAILY magnesium amino acid chelate 100 mg tablet 300 mg PO DAILY Collagen PO Discontinued omeprazole 20 mg capsule,delayed release(DR/EC) 20 mg PO DAILY aspirin 81 mg tablet,delayed release (DR/EC) 81 mg PO DAILY amoxicillin-pot clavulanate 875-125 mg tablet 1 tab PO BID Qty: 10 0RF No Action (DME) breast pump Device See Rx Instructions .ROUTE .MEDSUPPLY Qty: 1 0RF Rx Instructions: As directed (DME) Double Electric Breast Pump and Supplies See Rx Instructions .ROUTE .MEDSUPPLY Qty: 1 0RF Rx Instructions: As directed Follow up/Referrals: Melissa Sykes MD [Primary Care Provider] - 6 Weeks (See Dr. Sykes, Friday, April 19, 2024 @ 10am) Diet/Activity/Treatments Diet: Diet as Tolerated and Regular Skin/Wound/Dressing Care Report to your healthcare provider any signs of infection, such as:: chills, fever, increased pain and unusual drainage Visit Report/Discharge Packet Instructions: DI for Labor and Delivery, Vaginal Stand Alone Forms: Patient Portal/API, Stroke Signs & Symptoms Discharge Data Primary Care Provider: Melissa Sykes
== END 2024-03-12 13:50 | disposition home or self-care (01) | DRG 807 ==
PROVIDERS: Admitting Provider Family Medicine; PCP Family Medicine; Referring Provider Family Medicine; Visit Provider Family Medicine
DX: O12.14 Gestational proteinuria, complicating childbirth (principal); Z37.0 Single live birth; Z3A.39 39 weeks gestation of pregnancy; Z67.10 Type A blood, Rh positive
CPT/HCPCS: 36415; 59050; 59200; 85014; 85018; 85025; 86850; 86900; 86901; G0379

== ENCOUNTER → 2025-02-11 09:28 | Outpatient (CLI) | payer OTHER, SELFPAY ==
[2025-02-11 10:10] LABS: Pregnancy Test Urine Negative (Negative)
== END ==
PROVIDERS: Family Provider Family Medicine; PCP Family Medicine; Visit Provider Nurse Practitioner Family
DX: N89.8 Other specified noninflammatory disorders of vagina (principal)
CPT/HCPCS: 81025; 87070; 87075; 87077; 87147; 87205; 87210; 87252

== ENCOUNTER → 2025-02-11 09:57 | Outpatient (CLI) | payer OTHER, SELFPAY ==
[2025-02-11 12:28] LABS: Urine N gonorrhoeae NOT DETECTED
[2025-02-11 12:39] LABS: Urine Chlamydia NOT DETECTED
[2025-02-11 15:58] LABS: Hepatitis B Surface Antigen NEGATIVE s/c (NEGATIVE)
[2025-02-11 16:15] LABS: HIV 1 & 2 Ab/Ag 4th Gen Combo NEGATIVE (NEGATIVE); Hep C Virus Ab w/Reflex Quant NEGATIVE s/c (NEGATIVE)
[2025-02-12 06:08] LABS: RPR Screen Non Reactive (Non Reactive)
== END ==
PROVIDERS: Family Provider Family Medicine; PCP Family Medicine; Referring Provider Family Medicine; Visit Provider Nurse Practitioner Family
DX: N89.8 Other specified noninflammatory disorders of vagina (principal)
CPT/HCPCS: 36415; 81025; 86592; 86803; 87070; 87077; 87147; 87205; 87210; 87252; 87340; 87389; 87491; 87591